=== PATIENT | female | born 1960 | race Caucasian/White ===

== ENCOUNTER 2019-06-04 08:27 | Emergency (ER) | payer BC ==
[2019-06-04 09:03] VITALS: BP 138/83
--- NOTE | 2019-06-04 10:33 | UC ---
Throat Pain/Nasal Mejia HPI - HPI Summary HPI Summary: 58 year old female with complaints of sinus pain x days. no improvement with OTCs. + daily smoker - History of Current Complaint Chief Complaint: UCGeneralIllness Stated Complaint: sinus congestion Time Seen by Provider: 06/04/19 10:23 Hx Obtained From: Patient ?: No Onset/Duration: Sudden Onset, Lasting Days Severity: Moderate Pain Intensity: 10 Pain Scale Used: Adult Non Verbal - Allergies/Home Medications Allergies/Adverse Reactions: Allergies Allergy/AdvReac Type Severity Reaction Status Date / Time Estrogens Allergy passes out Verified 06/04/19 09:04 PMH/Surg Hx/FS Hx/Imm Hx Previously Healthy: Yes - Surgical History Surgical History: Yes Surgery Procedure, Year, and Place: [facility], [place] - Family History Known Family History: Positive: Non-Contributory - Social History Occupation: Employed Full-time Alcohol Use: Occasionally Substance Use Type: None Smoking Status (MU): Light Every Day Tobacco Smoker Review of Systems All Other Systems Reviewed And Are Negative: Yes Constitutional: Positive: Fever, Chills, Fatigue ENT: Positive: Sore Throat, Sinus Congestion, Sinus Pain/Tenderness Respiratory: Positive: Cough Is Patient Immunocompromised?: No Physical Exam Triage Information Reviewed: Yes Appearance: No Pain Distress, Well-Nourished, Ill-Appearing - mild Vital Signs: Initial Vital Signs Temp 97.3 F 06/04/19 09:00 Pulse 93 06/04/19 09:00 Resp 18 06/04/19 09:00 BP 138/83 06/04/19 09:00 Pulse Ox 99 06/04/19 09:00 Vital Signs Reviewed: Yes Eyes: Positive: Conjunctiva Clear ENT: Positive: Pharyngeal erythema - minimal, Sinus tenderness - b/l frontal, max, Uvula midline. Negative: Tonsillar swelling, Tonsillar exudate Neck: Positive: Supple, Nontender, No Lymphadenopathy Respiratory: Positive: Chest non-tender, Lungs clear, Normal breath sounds, No respiratory distress, No accessory muscle use. Negative: Crackles, Rhonchi, Stridor, Wheezing Cardiovascular: Positive: RRR, No Murmur Psychological Exam: Normal Skin Exam: Normal Throat Pain/Nasal Course/Dx - Course Course Of Treatment: Sinusitis: - Antibiotics as directed - Increase fluid intake - Over the counter medications as needed for symptoms - Motrin 600mg every 4-6 hours to decrease inflammation/ pain/ headache - Return with increased symptoms or if no impovement - Differential Dx/Diagnosis Provider Diagnosis: Sinusitis Discharge ED - Sign-Out/Discharge Documenting (check all that apply): Patient Departure All imaging exams completed and their final reports reviewed: No Studies - Discharge Plan Condition: Good Disposition: HOME Prescriptions: Azithromyxin YOUSIF (NF) [Z-Yosuif (Zithromax) 250 mg tabs #6] 2 tab PO .TODAY, THEN 1 DAILY #6 tab Patient Education Materials: Sinusitis (ED) Forms: *Work Release Referrals: [facility] [Outside] No Primary Care Phys,NOPCP [Primary Care Provider] - Additional Instructions: - Antibiotics as directed - Increase fluid intake - Over the counter medications as needed for symptoms - Motrin 600mg every 4-6 hours to decrease inflammation/ pain/ headache - Return with increased symptoms or if no impovement - Billing Disposition and Condition Condition: GOOD Disposition: Home
== END 2019-06-04 10:35 | disposition home or self-care (01) ==
LOC: UCEAST 08:27
DX: J32.9 Chronic sinusitis, unspecified (principal); Z88.8 Allergy status to other drugs, medicaments and biological substances; F17.200 Nicotine dependence, unspecified, uncomplicated
CPT/HCPCS: 99212; G0463